=== PATIENT | male | born 2000 | race Two or more races ===

== ENCOUNTER 2025-02-03 14:47 | Emergency (ER) | payer SELFPAY ==
[~2025-02-03] VITALS: Ht 175.3 cm; Wt 62.3 kg
[2025-02-03] MEDS ORDERED: HYDR2.5C39 TOP (15:22)
[2025-02-03] MEDS ORDERED: DOCU-94 PO (15:22)
--- NOTE | 2025-02-03 15:22 | ED.PDOC ---
History of Present Illness HPI Comments 24-year-old male came to the ER stating that he has been having constipation with rectal pain for the past few months. For the past few weeks his having very small amount of bowel movements. History of hemorrhoids. Denies bright red blood per rectum. Denies nausea vomiting. Denies any other symptoms. Time Seen by MD: 14:55 Reviewed Notes: Nurses Notes, Medications, Allergies Information Source: Patient Mode of Arrival: Ambulatory Severity: Moderate Timing: Months Duration: Since onset Past Medical History PAST MEDICAL HISTORY: Denies Surgical History: Denies all surgeries Social History Smoker: Non-Smoker Alcohol: Denies ETOH Use Drugs: Denies Drug Use Constitutional: denies: chills, diaphoresis, fatigue, fever, malaise, sweats, weakness, others EENTM: denies: blurred vision, double vision, ear bleeding, ear discharge, ear drainage, ear pain, ear ringing, eye pain, eye redness, hearing loss, mouth pain, mouth swelling, nasal discharge, nose bleeding, nose congestion, nose pain, photophobia, tearing, throat pain, throat swelling, voice changes, others Respiratory: denies: cough, hemoptysis, orthopnea, SOB at rest, shortness of breath, SOB with excertion, stridor, wheezing, others Cardiovascular: denies: chest pain, dizzy spells, diaphoresis, Dyspnea on exertion, edema, irregular heart beat, left arm pain, lightheadedness, palpitations, PND, syncope, others Gastrointestinal: reports: rectal pain; denies: abdomen distended, abdominal pain, blood streaked bowels, constipated, diarrhea, dysphagia, difficulty swallowing, hematemesis, melena, nausea, poor appetite, poor fluid intake, rectal bleeding, vomiting, others Genitourinary: denies: burning, dysuria, flank pain, frequency, hematuria, incontinence, penile discharge, penile sore, pain, testicle pain, testicle swelling, urgency, others Neurological: denies: dizziness, fainting, headache, left sided numbness, left sided weakness, numbness, paresthesia, pre-existing deficit, right sided numbness, right sided weakness, seizure, speech problems, tingling, tremors, weakness, others Musculoskeletal: denies: back pain, gout, joint pain, joint swelling, muscle pain, muscle stiffness, neck pain, others Integumetry: denies: bruises, change in color, change in hair/nails, dryness, laceration, lesions, lumps, rash, wounds, others Allergic/Immunocompromised: denies: Difficulty Healing, Frequent Infections, Hives, Itching, others Hematologic/Lymphatic: denies: anemia, blood clots, easy bleeding, easy bruising, swollen glands, others Endocrine: denies: excessive hunger, excessive sweating, excessive thirst, excessive urination, flushing, intolerance to cold, intolerance to heat, unexplained weight gain, unexplained weight loss, others Psychiatric: denies: anxiety, bipolar disorder, depression, hopeless, panic disorder, schizophrenia, sleepless, suicidal, others Physical Exam General Appearance: Moderate Distress HEENT: Normal ENT Inspection, Pharynx Normal, TMs Normal Neck: Full Range of Motion, Non-Tender, Normal, Normal Inspection Respiratory: Chest Non-Tender, Lungs Clear, No Accessory Muscle Use, No Respiratory Distress, Normal Breath Sounds Cardiovascular: No Edema, No JVD, No Murmur, No Gallop, Normal Peripheral Pulses, Regular Rate/Rhythm Breast Exam: Deferred Gastrointestinal: No Organomegaly, Non Tender, No Pulsatile Mass, Normal Bowel Sounds, Soft Genitalia: Deferred Pelvic: Deferred Rectal: Deferred Extremities: No calf tenderness, Normal capillary refill, Normal inspection, Normal range of motion, Non-tender, No pedal edema Musculoskeletal : Apperance: Normal Neurologic: Alert, wildlife refuge specialist II-XII nml as Tested, No Motor Deficits, Normal Affect, Normal Mood, No Sensory Deficits Cerebellar Function: Normal Reflexes: Normal Skin: Dry, Normal Color, Warm Peripheral Pulses: 3+ Radial (R), 3+ Radial (L) Lymphatic: No Adenopathy Was a procedure done? Was a procedure done?: No Differential Dx Considerations may include: Hemorrhoids Constipation X-Ray, Labs, Meds, VS Patient alert. Complaining of constipation. On examination no sign of any hemorrhoid. Vitals stable. Answering all questions. Abdomen is soft nontender. Pristine physical examination. Was given prescription of Colace Hydrocortisone. Explained to the patient. Was told to follow up with his primary care physician. Was told to come back if there is any problem. Time of 1ST Reevaluation: 15:19 Reevaluation 1ST: Unchanged Patient Education/Counseling: Diagnosis, Treatment, Prognosis, Need For Follow Up Family Education/Counseling: No Family Present Departure 1 Departure Time of Disposition: 15:20 Impression: Primary Impression: Constipation Qualified Codes: K59.01 - Slow transit constipation Additional Impression: Hemorrhoid Qualified Codes: K64.9 - Unspecified hemorrhoids Disposition: 01 HOME / SELF CARE / HOMELESS Condition: Good e-Prescriptions Hydrocortisone Base (Anusol-Hc) 2.5 % Cre 1 APPLIC TOP BID for 10 Days, #5 GRAMS 1 Refill Prov: REBECCA WATSON MD 02/03/25 Docusate Sodium (Colace) 100 Mg Cap 100 MG PO DAILY for 7 Days, #7 CAP Prov: REBECCA WATSON MD 02/03/25 Discharged With: Self Critical Care Note Critical Care Time?: No Stability Stability form required: No Heart Score Heart Score: Heart Score Response (Comments) Value History N/A 0 EKG N/A 0 Age N/A 0 Risk Factors N/A 0 Troponin N/A 0 Total 0 REBECCA WATSON MD Feb 03, 2025 15:22
[2025-02-03 15:34] VITALS: BP 97/46; TEMP 98.7
[2025-02-03 15:40] VITALS: PULSE 67; RESP 16; O2SAT 100
[2025-02-03] MEDS: DOCUSATE SOD 100 MG CAP PO ONE (15:43)
== END 2025-02-03 15:44 | disposition home or self-care (01) ==
LOC: ER 14:47
DX: K59.00 Constipation, unspecified (principal); K64.9 Unspecified hemorrhoids